=== PATIENT | female | born 1990 | race Caucasian/White ===

== ENCOUNTER 2017-09-06 00:07 | Inpatient (IN) | payer OTHER ==
[~2017-09-06] VITALS: Ht 175.3 cm; Wt 100.0 kg
[~2017-09-06 00:07] MED LIST: CYCLOBENZAPRINE10 MG PO; CYCLOBENZAPRINE5 MG PO; IBUPROFEN800 MG PO; NORCO 5-325 TA1 EACH PO; PERCOCET 5-3251 EACH PO; VALTREX1000 MG PO
[2017-09-06] MEDS ORDERED: VITAFOL-OB+DHA1 EACH PO (00:39)
--- NOTE | 2017-09-07 12:54 | PR ---
[facility] [address] [facility] [place], [place] [address] Signed PP Progress Notes Datetime Report Generated by CPN: 09/07/2017 12:54 SUBJECTIVE: [id number] Pain: Within normal limits Nausea/Vomiting: Denies Flatus: Yes Bowel Movement: Yes Vital Signs: [id number] Vital Signs: Reviewed; Within Normal Limits EXAM: [id number] Cardiovascular: Normal Respiratory: Normal Abdomen/Uterus: Normal Lochia: Normal Vulva/Perineum: Normal Breasts: Normal CVA Tenderness: Normal Extremities: Normal Incision: Not Applicable Progress: Normal IMPRESSION/PLAN/PROCEDURES: [id number] Impression: Normal progression Plan: Discharge Procedures: [place] Progress Notes: patient doing well, anting to go home Signing Physician: Kristie Farrell MD CC: *Electronically Signed* 09/07/17 1254 KRISTIE FARRELL MD PATIENT NAME: MEHDI WHATLEY PROGRESS NOTE DATE OF : 86 PHYSICIAN: KRISTIE FARRELL MD RPT #: [id number] REPORT IS CONFIDENTIAL AND NOT TO BE RELEASED WITHOUT AUTHORIZATION
== END 2017-09-07 13:15 | disposition home or self-care (01) | DRG 775 ==
LOC: FBC 00:07
PROVIDERS: ADMIT Obstetrics & Gynecology
PROC: 10E0XZZ Delivery of Products of Conception, External Approach (ICD-10-PCS; principal; 2017-09-06)
PROC: 3E0S3BZ Introduction of Anesthetic Agent into Epidural Space, Percutaneous Approach (ICD-10-PCS; 2017-09-06)
PROC: 00HU33Z Insertion of Infusion Device into Spinal Canal, Percutaneous Approach (ICD-10-PCS; 2017-09-06)
PROC: 3E0234Z Introduction of Serum, Toxoid and Vaccine into Muscle, Percutaneous Approach (ICD-10-PCS; 2017-09-07)
DX: O80 Encounter for full-term uncomplicated delivery (principal); Z3A.39 39 weeks gestation of pregnancy; Z37.0 Single live birth; Z23 Encounter for immunization
CPT/HCPCS: 01960; 36415; 85027; 90707; J2590; J3010; J7120

== ENCOUNTER 2021-11-03 16:24 | Emergency (ER) | payer OTHER ==
[~2021-11-03] VITALS: Ht 175.3 cm; Wt 99.8 kg
[~2021-11-03 16:24] MED LIST changes: +VITAFOL-OB+DHA1 EACH PO
== END 2021-11-03 18:50 | disposition home or self-care (01) ==
LOC: ED 16:24
DX: U07.1 COVID-19 (principal); R06.4 Hyperventilation; Z87.891 Personal history of nicotine dependence
CPT/HCPCS: 99284; A9270-GY; C9803; U0003